=== PATIENT | male | born 1950 | race Caucasian/White ===

== ENCOUNTER 2016-10-12 10:22 | Outpatient (CLI) | payer MEDICARE ==
[2016-10-12 11:30] LABS: Follow-up Chemistry Comp? YES; Follow-up Result - Chemistry REPORT FAXED
== END 2016-10-12 10:23 | disposition home or self-care (01) ==
LOC: NAV LAB 10:22
PROVIDERS: ATTEND Neurological Surgery
DX: M54.12 Radiculopathy, cervical region (principal)
CPT/HCPCS: 36415; 82565

== ENCOUNTER → 2016-12-28 | Emergency (ER) | payer MEDICARE ==
--- NOTE | 2016-12-28 15:55 | RAD ---
3 VIEW RIGHT WRIST: Date: 12/28/16 INDICATION: Joint pain. FINDINGS: There is osseous fragmentation about the dorsal aspect of the carpus. 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 There is mild osteoarthritis. IMPRESSION: Osseous fragmentation centered at the dorsal aspect of the carpus. This may be seen in the setting o f triquetral fracture. This finding is age-indeterminate. Recommend clinical correlation for further assessment. As necessary, CT of the right wrist may prove useful. POS: DARION
== END ==
LOC: NAV ERS 15:05
DX: S62.101A Fracture of unspecified carpal bone, right wrist, initial encounter for closed fracture (principal); M19.90 Unspecified osteoarthritis, unspecified site; E78.5 Hyperlipidemia, unspecified; I10 Essential (primary) hypertension; W10.9XXA Fall (on) (from) unspecified stairs and steps, initial encounter